=== PATIENT | male | born 1980 | race Hispanic/Latino ===

== ENCOUNTER 2016-10-04 21:32 | Emergency (ER) | payer SELFPAY ==
[2016-10-04 22:28] LABS: Alanine Aminotransferase 28 units/L (7-56); Albumin 4.3 g/dL (3.9-5); Albumin/Globulin Ratio 1.3 %; Alkaline Phosphatase 129 units/L (35-129); Anion Gap 18 mmol/L; BUN/Creatinine Ratio 13.63; Bilirubin,Total 0.2 mg/dL (0.1-1.2); Blood Urea Nitrogen 15 mg/dL (9-20); Calcium 9.4 mg/dL (8.4-10.2); Carbon Dioxide 26 mmol/L (22-30); Chloride 96.5 mmol/L (98-107); Glucose 108 mg/dL (75-100); Lipase 15 units/L (13-60); Potassium 4.1 mmol/L (3.6-5.0); Sodium 136 mmol/L (137-145); Total Protein 7.6 g/dL (6.3-8.2)
[2016-10-04 22:29] LABS: Basophils % (Auto) 0.5 % (0.0-1.8); Eosinophils % (Auto) 1.8 % (0.0-4.3); Hematocrit 45.3 % (35.5-45.6); Hemoglobin 15.7 gm/dl (11.8-15.2); Mean Corpuscular HGB Conc 35 % (32-34); Mean Corpuscular Hemoglobin 32 pg (28-32); Mean Corpuscular Volume 91 fl (84-94); Platelet Count 224 K/mm3 (140-440); Red Blood Count 4.97 M/mm3 (3.65-5.03); Red Cell Distribution Width 14.4 % (13.2-15.2); White Blood Count 12.4 K/mm3 (4.5-11.0)
[2016-10-04 22:57] LABS: Bilirubin,Urine NEG (Negative); Blood,Urine NEG (Negative); Ketones,Urine NEG (Negative); Leukocyte Esterase,Urine NEG (Negative); Mucus,Urine FEW /HPF; Nitrite,Urine NEG (Negative); Urobilinogen,Urine < 2.0 mg/dL (<2.0)
[2016-10-04] MEDS ORDERED: PEPCID IV ONE (23:48)
[2016-10-04] MEDS ORDERED: NACL 0.9% 1000 ML 1,000 ML IV ONE (23:48)
[2016-10-04] MEDS ORDERED: ZOFRAN IV ONE (23:48)
[2016-10-04] MEDS ORDERED: MORPHINE IV ONE (23:48)
[2016-10-04] MEDS ORDERED: ALUM-MAG HYDROX-SIMETH 200-200-20MG/5ML PO ONE (23:49)
--- NOTE | 2016-10-04 23:49 | Emergency Department Report ---
ED General Adult HPI - General Chief complaint: Abdominal Pain Stated complaint: ABD PAIN, CHEST PAIN Time Seen by Provider: 10/04/16 23:41 Source: patient, family, RN notes reviewed Mode of arrival: Ambulatory Limitations: No Limitations - History of Present Illness Initial comments: This is a 36-year-old male. He is previously unknown to me. He currently does not have a primary care doctor. He used to live in [place]. He has past medical history of congenital one kidney, peptic ulcer disease diagnosed endoscopically in [place], for methamphetamine user. Denies a history of abdominal surgeries. He presents to the ER complaining of abdominal pain. The abdominal pain has been present for one week. It is all over. It occasionally radiates down, to the sides, and up to his epigastrium and subxiphoid/chest area. There is no diaphoresis, no leg pain, no leg swelling, no recent trips greater than 4 hours. There is no testicular pain. There is no irritative or obstructive urinary symptoms. No cocaine use. Symptoms started after he consumed some lobster. -: Gradual Location: chest, abdomen Severity scale (0 -10): 9 Quality: aching Consistency: constant Improves with: rest Worsens with: movement Associated Symptoms: chest pain, loss of appetite, malaise - Related Data Previous Rx's Medication Instructions Recorded Last Taken Type Dicyclomine [Bentyl] 10 mg PO QID PRN #20 capsule 10/05/16 Unknown Rx Famotidine [Pepcid] 20 mg PO QDAY #30 tablet 10/05/16 Unknown Rx Ondansetron [Zofran Odt] 4 mg PO QID PRN #20 tab.rapdis 10/05/16 Unknown Rx Allergies Allergy/AdvReac Type Severity Reaction Status Date / Time No Known Allergies Allergy Unverified 10/04/16 21:54 ED Review of Systems ROS: Stated complaint: ABD PAIN, CHEST PAIN Other details as noted in HPI ED Past Medical Hx - Past Medical History Additional medical history: PUD. Unilateral Left Kidney - Surgical History Additional Surgical History: Hernia Repair - Social History Smoking Status: Current Every Day Smoker Substance Use Type: Marijuana - Medications Home Medications: Home Medications Medication Instructions Recorded Confirmed Last Taken Type Dicyclomine [Bentyl] 10 mg PO QID PRN #20 capsule 10/05/16 Unknown Rx Famotidine [Pepcid] 20 mg PO QDAY #30 tablet 10/05/16 Unknown Rx Ondansetron [Zofran Odt] 4 mg PO QID PRN #20 tab.rapdis 10/05/16 Unknown Rx ED Physical Exam - General Limitations: No Limitations General appearance: alert, anxious - Head Head exam: Present: atraumatic, normocephalic - Eye Eye exam: Present: normal appearance, EOMI. Absent: nystagmus - ENT ENT exam: Present: normal exam, normal orophraynx, mucous membranes moist, normal external ear exam - Neck Neck exam: Present: normal inspection, full ROM. Absent: tenderness, meningismus - Respiratory Respiratory exam: Present: normal lung sounds bilaterally. Absent: respiratory distress, wheezes, rales, rhonchi, stridor, chest wall tenderness, accessory muscle use, decreased breath sounds, prolonged expiratory - Cardiovascular Cardiovascular Exam: Present: regular rate, normal rhythm, normal heart sounds. Absent: bradycardia, tachycardia, irregular rhythm, systolic murmur, diastolic murmur, rubs, gallop - GI/Abdominal GI/Abdominal exam: Present: soft, tenderness, normal bowel sounds. Absent: distended, guarding, rebound, rigid, pulsatile mass - Rectal Rectal exam: Present: deferred - Extremities Exam Extremities exam: Present: normal inspection, full ROM, normal capillary refill. Absent: tenderness, pedal edema, joint swelling, calf tenderness - Back Exam Back exam: Present: normal inspection, full ROM. Absent: tenderness, CVA tenderness (R), CVA tenderness (L), muscle spasm, paraspinal tenderness, vertebral tenderness - Neurological Exam Neurological exam: Present: alert, oriented X3, other (Extraocular movements intact. Tongue midline. No facial droop. Facial sensation intact to light touch in the V1, V2, V3 distribution bilaterally. 5 and 5 strength in 4 extremities.. Sensation is intact to light touch in 4 extremities.). Absent: motor sensory deficit - Psychiatric Psychiatric exam: Present: anxious - Skin Skin exam: Present: warm, dry, intact, normal color. Absent: rash ED Course Vital Signs 10/04/16 10/04/16 10/05/16 21:45 23:44 00:10 Temperature 98.2 F 97.7 F Pulse Rate 74 65 Respiratory 18 22 20 Rate Blood Pressure 129/90 Blood Pressure 129/90 128/63 [Left] O2 Sat by Pulse 98 95 Oximetry - Reevaluation(s) Reevaluation #1: 10/05/16 01:51 Differential diagnosis: Constipation, colitis, diverticulitis, perforation, pneumonia, cyclic vomiting syndrome, narcotic bowel syndrome, food poisoning Assessment and plan: 36-year-old male with 1 week of abdominal pain. He is low risk by ZACH score, low risk by heart score, no pulmonary embolus or DVT risk factors, low risk by well's criteria, perc negative. EKGs are morphologically unremarkable 2. Symptoms have been present for one week. Therefore, as per the [employer] clinical policy, myocardial infarction may be excluded with 1 set of cardiac enzymes. He is somewhat tender in his abdominal region diffusely. A plain film of the abdomen and pelvis is nondiagnostic. A CT scan with oral contrast is ordered. We will reassess after initial data points and CAT scan have resulted. Of note , lactic acid is also unremarkable. Reevaluation #2: 10/05/16 02:53 Patient tolerating liquid feeds. Laboratory studies unremarkable. Noncontrast CT scan negative for acute disease. Patient is suitable to follow up with outpatient gastroenterology. His pain is somewhat improved. He can follow with outpatient primary care as well. He will be discharged with symptomatic therapy. Return precautions are extensively reviewed. ED Medical Decision Making - Lab Data Result diagrams: 10/04/16 21:58 10/04/16 21:58 Vital Signs 10/04/16 10/04/16 10/05/16 21:45 23:44 00:10 Temperature 98.2 F 97.7 F Pulse Rate 74 65 Respiratory 18 22 20 Rate Blood Pressure 129/90 Blood Pressure 129/90 128/63 [Left] O2 Sat by Pulse 98 95 Oximetry Vital Signs 10/04/16 10/04/16 10/05/16 21:45 23:44 00:10 Temperature 98.2 F 97.7 F Pulse Rate 74 65 Respiratory 18 22 20 Rate Blood Pressure 129/90 Blood Pressure 129/90 128/63 [Left] O2 Sat by Pulse 98 95 Oximetry Lab Results 10/04/16 10/04/16 10/04/16 Range/Units 21:58 21:58 22:19 WBC 12.4 H (4.5-11.0) K/mm3 RBC 4.97 (3.65-5.03) M/mm3 Hgb 15.7 H (11.8-15.2) gm/dl Hct 45.3 (35.5-45.6) % MCV 91 (84-94) fl MCH 32 (28-32) pg MCHC 35 H (32-34) % RDW 14.4 (13.2-15.2) % Plt Count 224 (140-440) K/mm3 Lymph % (Auto) 26.1 (13.4-35.0) % [place] % (Auto) 6.2 (0.0-7.3) % Eos % (Auto) 1.8 (0.0-4.3) % Baso % (Auto) 0.5 (0.0-1.8) % Lymph # 3.2 (1.2-5.4) K/mm3 [place] # 0.8 (0.0-0.8) K/mm3 Eos # 0.2 (0.0-0.4) K/mm3 Baso # 0.1 (0.0-0.1) K/mm3 Seg Neutrophils % 65.4 (40.0-70.0) % Seg Neutrophils # 8.1 H (1.8-7.7) K/mm3 Sodium 136 L (137-145) mmol/L Potassium 4.1 (3.6-5.0) mmol/L Chloride 96.5 L (98-107) mmol/L Carbon Dioxide 26 (22-30) mmol/L Anion Gap 18 mmol/L BUN 15 (9-20) mg/dL Creatinine 1.1 (0.8-1.5) mg/dL Estimated GFR > 60 ml/min BUN/Creatinine Ratio 13.63 % Glucose 108 H (75-100) mg/dL Lactic Acid (0.7-2.0) mmol/L Calcium 9.4 (8.4-10.2) mg/dL Total Bilirubin 0.2 (0.1-1.2) mg/dL AST 22 (5-40) units/L ALT 28 (7-56) units/L Alkaline Phosphatase 129 (35-129) units/L Troponin T (0.00-0.029) ng/mL Total Protein 7.6 (6.3-8.2) g/dL Albumin 4.3 (3.9-5) g/dL Albumin/Globulin Ratio 1.3 % Lipase 15 (13-60) units/L Urine Color Yellow (Yellow) Urine Turbidity Clear (Clear) Urine pH 5.0 (5.0-7.0) Ur Specific [place] 1.020 (1.003-1.030) Urine Protein 30 mg/dl (Negative) mg/dL Urine Glucose (UA) Neg (Negative) mg/dL Urine Ketones Neg (Negative) mg/dL Urine Blood Neg (Negative) Urine Nitrite Neg (Negative) Urine Bilirubin Neg (Negative) Urine Urobilinogen < 2.0 (<2.0) mg/dL Ur Leukocyte Esterase Neg (Negative) Urine WBC (Auto) 1.0 (0.0-6.0) /HPF Urine RBC (Auto) 2.0 (0.0-6.0) /HPF Urine Mucus Few /HPF 10/04/16 10/04/16 Range/Units 23:58 23:58 WBC (4.5-11.0) K/mm3 RBC (3.65-5.03) M/mm3 Hgb (11.8-15.2) gm/dl Hct (35.5-45.6) % MCV (84-94) fl MCH (28-32) pg MCHC (32-34) % RDW (13.2-15.2) % Plt Count (140-440) K/mm3 Lymph % (Auto) (13.4-35.0) % [place] % (Auto) (0.0-7.3) % Eos % (Auto) (0.0-4.3) % Baso % (Auto) (0.0-1.8) % Lymph # (1.2-5.4) K/mm3 [place] # (0.0-0.8) K/mm3 Eos # (0.0-0.4) K/mm3 Baso # (0.0-0.1) K/mm3 Seg Neutrophils % (40.0-70.0) % Seg Neutrophils # (1.8-7.7) K/mm3 Sodium (137-145) mmol/L Potassium (3.6-5.0) mmol/L Chloride (98-107) mmol/L Carbon Dioxide (22-30) mmol/L Anion Gap mmol/L BUN (9-20) mg/dL Creatinine (0.8-1.5) mg/dL Estimated GFR ml/min BUN/Creatinine Ratio % Glucose (75-100) mg/dL Lactic Acid 0.7 (0.7-2.0) mmol/L Calcium (8.4-10.2) mg/dL Total Bilirubin (0.1-1.2) mg/dL AST (5-40) units/L ALT (7-56) units/L Alkaline Phosphatase (35-129) units/L Troponin T < 0.010 (0.00-0.029) ng/mL Total Protein (6.3-8.2) g/dL Albumin (3.9-5) g/dL Albumin/Globulin Ratio % Lipase (13-60) units/L Urine Color (Yellow) Urine Turbidity (Clear) Urine pH (5.0-7.0) Ur Specific [place] (1.003-1.030) Urine Protein (Negative) mg/dL Urine Glucose (UA) (Negative) mg/dL Urine Ketones (Negative) mg/dL Urine Blood (Negative) Urine Nitrite (Negative) Urine Bilirubin (Negative) Urine Urobilinogen (<2.0) mg/dL Ur Leukocyte Esterase (Negative) Urine WBC (Auto) (0.0-6.0) /HPF Urine RBC (Auto) (0.0-6.0) /HPF Urine Mucus /HPF - EKG Data -: EKG Interpreted by Me EKG shows normal: sinus rhythm, axis, intervals, QRS complexes, ST-T waves Rate: normal - EKG Data 10/05/16 01:54 EKG #1 demonstrates normal sinus, 71 bpm, normal intervals, normal axis, not morphologically consistent with STEMI. EKG #2 demonstrates sinus bradycardia, 58 bpm, normal intervals, normal axis, not consistent with STEMI. - Radiology Data Radiology results: report reviewed, image reviewed interpreted by me: X-ray of the chest is negative. X-ray of the abdomen/pelvis demonstrates nonspecific bowel gas pattern, prominent fecal load noted in the ascending colon. CT scan of the abdomen and pelvis with oral contrast demonstrates no acute disease. The appendix is noted to be within normal limits. Critical care attestation.: If time is entered above; I have spent that time in minutes in the direct care of this critically ill patient, excluding procedure time. ED Disposition Clinical Impression: Abdominal pain Disposition: DISCHARGED TO HOME OR SELFCARE Is pt being admited?: No Does the pt Need Aspirin: No Condition: Good Instructions: Acute Abdominal Pain (ED) Additional Instructions: Lab returns studies were unremarkable. CT scan of abdomen and pelvis does not demonstrate any condition that would require emergent surgical intervention. Follow-up with the primary care doctor or roller skater within the next 3- [address] Finch is a local primary care doctor. Dr. Orozco is a local roller skater. [facility] has a patient service hotline which calmed be contacted to arrange a close follow-up appointment. [phone] ([phone]) Avoid heavy and spicy foods. Avoid caffeinated beverages. Eat green leafy vegetables. Return to the ER right away with new pain, worsened pain, migration of pain, intractable nausea or vomiting, inability to tolerate liquid feeds. Avoid consumption of alcohol, caffeine, carbonated substances, Aleve, Motrin, ibuprofen, aspirin. Referrals: PRIMARY CARE, [Primary Care Provider] - 3-5 Days CATHLEEN FICNH MD [Staff Physician] - 3-5 Days LUPE OROZCO MD [Staff Physician] - 3-5 Days
--- NOTE | 2016-10-05 02:37 | Cat Scan Report ---
FINAL REPORT PROCEDURE: CT ABDOMEN PELVIS WO CON TECHNIQUE: Computerized axial tomography of the abdomen and pelvis was performed without intravenous contrast. This study is performed without intravascular contrast material and its sensitivity for abdominal and pelvic pathology, including neoplasms, inflammation, abscess, free fluid, thrombosis, arterial dissection and infarction, is reduced compared with a contrast enhanced study. HISTORY: abd pain COMPARISON: No prior studies are available for comparison. FINDINGS: Visualized lower thorax: No significant abnormality. Liver: Normal size and attenuation. Spleen: Normal size and attenuation. Gallbladder and biliary system: Normal. Pancreas: Normal. Adrenals: Normal. Kidneys: The right kidney has a normal size and appearance. No hydronephrosis. No renal stones or masses. The left kidney is absent.. GI tract: No obstruction. No ileus or enteritis. The cecum, appendix and colon are normal.. Lymph nodes and mesentery: Normal. Vasculature: Normal. Bladder: Normal. Reproductive organs: Normal. Peritoneum: No free fluid. Musculoskeletal structures: No significant abnormality. Other: None. IMPRESSION: There is no evidence of intestinal or urinary tract obstruction. No ileus or enteritis. The appendix is normal. The right kidney has a normal appearance. The left kidney is absent, this may be related to congenital absence..
[2016-10-05 03:14] VITALS: BP 126/83
--- NOTE | 2016-10-05 09:53 | XRay Report ---
ABDOMINAL SERIES: History: Abdominal pain, chest pain. Erect chest film shows no acute or significant changes involving the heart or lung humphries. There is no evidence of free air beneath the diaphragms. The gas pattern within the abdomen is unremarkable. There is no evidence of bowel dilatation, significant air-fluid levels, or masses. Organ shadows are unremarkable. IMPRESSION: Abdominal series within normal limits.
== END 2016-10-05 03:19 | disposition home or self-care (01) ==
LOC: ED 21:32
DX: R10.9 Unspecified abdominal pain (principal); F17.200 Nicotine dependence, unspecified, uncomplicated; F12.90 Cannabis use, unspecified, uncomplicated
CPT/HCPCS: 36415; 74022; 74176; 80053; 81001; 82140; 83690; 84484; 85025; 93005; 93010; 96361; 96374; 96375; 99285; J2270; J2405; J7030